=== PATIENT | male | born 1965 ===

== ENCOUNTER 2017-10-10 09:06 | Emergency (ER) | payer BC ==
[2017-10-10] MEDS ORDERED: Tetracaine 0.5% OPTH.SOL 4 ML* 1 DROP BTL RIGHT EYE ONE (09:40)
[2017-10-10 09:42] VITALS: BP 128/78
--- NOTE | 2017-10-10 09:53 | UC ---
Eye Complaint HPI - HPI Summary HPI Summary: 52 yo male was grinding mower blades yesterday was wearing contact lenses and reading glasses later experienced FB sensation after removing contact slight photophobia - History of Current Complaint Stated Complaint: METAL IN RIGHT EYE Time Seen by Provider: 10/10/17 09:38 Hx Obtained From: Patient Onset/Duration: Sudden Onset, Lasting Hours Timing: Constant Severity Initially: Mild Severity Currently: Mild Pain Intensity: 3 Pain Scale Used: 0-10 Numeric Location of Injury: Conjunctiva Aggravating Factor(s): Nothing Alleviating Factor(s): Nothing Associated Signs And Symptoms: Positive: Drainage (Clear) - tearing Related History: Foreign Body Eyes: 1 - FB - Allergies/Home Medications Allergies/Adverse Reactions: Allergies Allergy/AdvReac Type Severity Reaction Status Date / Time No Known Allergies Allergy Verified 10/10/17 09:38 Home Medications: Home Medications NK [No Home Medications Reported] 10/10/17 [History Confirmed 10/10/17] PMH/Surg Hx/FS Hx/Imm Hx Previously Healthy: Yes - Family History Known Family History: Positive: Hypertension Review of Systems Constitutional: Negative Skin: Negative Eyes: Eye Redness, Photophobia ENT: Negative Respiratory: Negative Cardiovascular: Negative Gastrointestinal: Negative Genitourinary: Negative Motor: Negative Neurovascular: Negative Musculoskeletal: Negative Neurological: Negative Psychological: Negative Is Patient Immunocompromised?: No All Other Systems Reviewed And Are Negative: Yes Physical Exam Triage Information Reviewed: Yes Appearance: Well-Appearing, No Pain Distress, Well-Nourished Vital Signs Reviewed: Yes Eyes: Positive: Conjunctiva Inflamed - right- FB noted ENT: Positive: Hearing grossly normal. Negative: Nasal congestion, Nasal drainage, Trismus, Muffled voice, Dental tenderness, Sinus tenderness, Uvula midline Neck: Positive: Supple, Nontender Respiratory: Positive: Lungs clear, Normal breath sounds, No respiratory distress Cardiovascular: Positive: RRR, No Murmur Musculoskeletal: Positive: ROM Intact, No Edema Neurological: Positive: Alert Psychological Exam: Normal Skin Exam: Normal Procedures - Procedure Summary Procedure Summary: FOREIGN BODY REMOVAL LEFT CORNEAL 2 DROPS TETRACAINE RIGHT EYE FB (METALLIC) REMOVED WITH Q TIP RESIDUAL RUST RING NOTED Eye Complaint Course/Dx - Differential Dx/Diagnosis Provider Diagnoses: RIGHT CORNEAL FOREIGN BODY. REMOVED /RESIDUAL RUST RING RIGHT CORNEA Discharge - Sign-Out/Discharge Documenting (check all that apply): Discharge/Admit/Transfer - Discharge Plan Condition: Stable Disposition: HOME Prescriptions: Polymyx/Trimethoprim OPTH* [Polytrim OPHTH*] 1 - 2 drop RIGHT EYE QID #1 btl Patient Education Materials: Eye Foreign Body (ED) Referrals: Bob Coombs MD [Medical Doctor] - Olivia Way MD [Medical Doctor] - Additional Instructions: foreign body removed you have a residual RUST RING I suggest you see an residential support specialist tomorrow if you have discomfort You should also see an residential support specialist to have the rust ring removed if you so desire - Billing Disposition and Condition Condition: STABLE Disposition: HOME
== END 2017-10-10 10:01 | disposition home or self-care (01) ==
LOC: UCCORT 09:06
DX: T15.01XA Foreign body in cornea, right eye, initial encounter (principal); X58.XXXA Exposure to other specified factors, initial encounter; Y93.89 Activity, other specified; Y92.9 Unspecified place or not applicable
CPT/HCPCS: 65220; 99212; A9270-GY; G0463

== ENCOUNTER 2017-10-27 07:03 | Emergency (ER) | payer BC ==
[2017-10-27 07:14] VITALS: BP 132/87
--- NOTE | 2017-10-27 07:35 | ED ---
Throat Pain/Nasal Congestion - HPI Summary HPI Summary: 52 yr old male with the complaint of left lower posterior molar swelling along gum and jaw pain. Onset just over the past 24 hours. Denies drooling. denies trouble swallowing or breathing. No other complaints. - History of Current Complaint Chief Complaint: UCDentalProblem Time Seen by Provider: 10/27/17 07:08 - Allergies/Home Medications Allergies/Adverse Reactions: Allergies Allergy/AdvReac Type Severity Reaction Status Date / Time No Known Allergies Allergy Verified 10/27/17 07:14 Home Medications: Home Medications Ibuprofen TAB* [Motrin TAB* 400 MG] 400 mg PO Q6H PRN 10/27/17 [History Confirmed 10/27/17] Naproxen TAB* [Naprosyn 250 mg TAB*] 440 mg PO Q8H PRN 10/27/17 [History Confirmed 10/27/17] PMH/Surg Hx/FS Hx/Imm Hx Infectious Disease History: No Infectious Disease History: Denies: Traveled Outside the [place] in Last 30 Days - Family History Known Family History: Positive: Hypertension - Social History Alcohol Use: Daily Alcohol Amount: 2 A DAY Substance Use Type: Reports: None Smoking Status (MU): Heavy Every Day Tobacco Smoker Amount Used/How Often: 1/2 PPD Have You Smoked in the Last Year: Yes Review of Systems Constitutional: Negative Positive: Dental Pain All Other Systems Reviewed And Are Negative: Yes Physical Exam Triage Information Reviewed: Yes Vital Signs On Initial Exam: Initial Vitals Temp Pulse Resp BP Pulse Ox 98.4 F 82 18 132/87 99 10/27/17 07:07 10/27/17 07:07 10/27/17 07:07 10/27/17 07:07 10/27/17 07:07 Vital Signs Reviewed: Yes Appearance: Positive: Well-Appearing, No Pain Distress Skin: Positive: Warm, Skin Color Reflects Adequate Perfusion Head/Face: Positive: Normal Head/Face Inspection Eyes: Positive: EOMI ENT: Positive: Dental tenderness - left lower posterior molar with small abscess sac buccal side Tooth number 18, Other - mild STS left mandible side, but no submandibular swelling.. Negative: Muffled voice, Hoarse voice Dental: Positive: Abscess @ - tooth number 18 left lower posterior molar. Negative: Cervical Lymphadenopathy Neck: Positive: Nontender Respiratory/Lung Sounds: Positive: Clear to Auscultation, Breath Sounds Present Cardiovascular: Positive: RRR. Negative: Murmur Abdomen Description: Negative: Distended Musculoskeletal: Positive: Strength/ROM Intact Neurological: Positive: Sensory/Motor Intact, Alert, Oriented to Person Place, Time, CN Intact II-III Psychiatric: Positive: Normal AVPU Assessment: Alert - [place] Coma Scale Best Eye Response: 4 - Spontaneous Best Motor Response: 6 - Obeys Commands Best Verbal Response: 5 - Oriented Coma Scale Total: 15 Diagnostics - Vital Signs Vital Signs Temp Pulse Resp BP Pulse Ox 10/27/17 07:07 98.4 F 82 18 132/87 99 - Laboratory Lab Statement: Any lab studies that have been ordered have been reviewed, and results considered in the medical decision making process. EENT Course/Dx - Course Course Of Treatment: 52 yr old with abscess tooth. Rx Augmentin. He will call his dentist today. He does have one here in [place]. - Diagnoses Provider Diagnoses: Dental abscess Discharge - Sign-Out/Discharge Documenting (check all that apply): Discharge/Admit/Transfer - Discharge Plan Condition: Good Disposition: HOME Prescriptions: Amoxicillin/Clavulanate TAB* [Augmentin TAB 875*] 875 mg PO BID #20 tab Patient Education Materials: Dental Abscess (ED) Referrals: Dick Moody [Primary Care Provider] - - Billing Disposition and Condition Condition: GOOD Disposition: Home
[2017-10-27] MEDS ORDERED: Amoxicillin/Clavulanate TAB* 875 MG PO ONE (07:36)
== END 2017-10-27 07:40 | disposition home or self-care (01) ==
LOC: UCCORT 07:03
DX: K04.7 Periapical abscess without sinus (principal); F17.210 Nicotine dependence, cigarettes, uncomplicated
CPT/HCPCS: 99212; A9270-GY; G0463